=== PATIENT | male | born 1940 | race Caucasian/White ===

== ENCOUNTER 2019-03-12 12:03 | Day surgery (SDC) | payer OTHER, MEDICARE ==
[2019-03-05 17:33] LABS: ALBUMIN 3.8 G/DL (3.4-5.0); ANION GAP 9 (8-16); BLOOD UREA NITROGEN 24 MG/DL (7-18); BUN/CREATININE RATIO 22.6 (5.4-32.0); CALCIUM 8.4 MG/DL (8.5-10.1); CHLORIDE 109 MMOL/L (99-107); CREATININE 1.06 MG/DL (0.60-1.10); GLUCOSE 97 MG/DL (70-104); POTASSIUM 3.5 MMOL/L (3.5-5.1); SODIUM 144 MMOL/L (135-145); TOTAL CARBON DIOXIDE 26.3 MMOL/L (24-32); eGFR 68 ML/MIN
[2019-03-05 17:36] LABS: INR 1.1 INR; PARTIAL THROMBOPLASTIN TIME 31 SECONDS (22-32)
[2019-03-05 17:39] LABS: CLARITY,URINE CLEAR (Clear); COLOR,URINE YELLOW (Yellow); GLUCOSE, URINE NEGATIVE (Neg); KETONES,URINE NEGATIVE (Neg); LEUKOCYTE ESTERASE ,URINE NEGATIVE (Neg); NITRITES, URINE NEGATIVE (Neg); OCCULT BLOOD,URINE NEGATIVE (Neg); PROTEIN,URINE NEGATIVE (Neg); UROBILINOGEN,URINE 0.2 E.U/dL (0.2-1.0)
[2019-03-05 17:53] LABS: UA COLLECTION TYPE NON-SPECIFIED
[2019-03-05 18:07] LABS: BASOPHILS % (AUTO) 0.5 % (0-1); EOSINOPHILS # (AUTO) 0.1 X10'3 (0-0.9); EOSINOPHILS % (AUTO) 2.4 % (0-6); HEMATOCRIT 40.3 % (42.0-52.0); HEMOGLOBIN 14.2 g/dl (14.0-17.9); LYMPHOCYTES % (AUTO) 18.9 % (21-51); MEAN CORPUSCULAR HEMOGLOBIN 33.8 PG (27.0-31.0); MEAN CORPUSCULAR HGB CONC 35.2 g/dL (33.0-36.5); MEAN PLATELET VOLUME 6.3 FL (7.4-10.4); MONOCYTES # (AUTO) 0.5 X10'3 (0-0.9); MONOCYTES % (AUTO) 10.3 % (2-12); NEUTROPHILS # (AUTO) 3.4 X10'3 (1.8-7.7); NEUTROPHILS % (AUTO) 67.9 % (42-75); PLATELET COUNT 224 X10'3 (140-440); RED CELL DISTRIBUTION WIDTH 12.9 % (11.5-14.5); WHITE BLOOD COUNT 5.1 X10'3 (4.5-11.0)
[2019-03-12] VITALS (9 sets, daily range): BP systolic 110–142; BP diastolic 67–83
[~2019-03-12] VITALS: Ht 177.8 cm; Wt 97.3 kg
[~2019-03-12 12:03] MED LIST: clindamycin-Cleocin 900mg/D5W 50 ML IV SCH
[2019-03-12] MEDS ORDERED: normal saline 1000ml 1,000 ML IV SCH (12:25)
[2019-03-12] MEDS ORDERED: ASPI-1265 PO (13:05)
[2019-03-12] MEDS ORDERED: MULT-955 PO (13:05)
[2019-03-12] MEDS ORDERED: DONE10TA7 PO (13:05)
[2019-03-12] MEDS ORDERED: AMLO5TAB PO (13:05)
[2019-03-12] MEDS ORDERED: CLINDAmcin 900mg/NS 50ml IVPB 50 ML IV ONE (13:10)
[2019-03-12] MEDS ORDERED: lidocaine 1%/epinephrine 1:100,000 injection 50ml vial ONE (13:55)
[2019-03-12] MEDS ORDERED: clindamycin phosphate 150mg/ml inj. ONE ×2 (14:42)
[2019-03-12] MEDS ORDERED: clindamycin 600mg/D5W 50ml 50 ML IV ONE (14:42)
[2019-03-12] MEDS ORDERED: proCHLORperazine 10 MG/2 ml inj ONE (14:47)
[2019-03-12] MEDS ORDERED: midazolam 2 mg/2 ml injection ONE (14:48)
[2019-03-12] MEDS ORDERED: fentaNYL/PF 50MCG/1 ML 2ML syringe ONE (14:48)
[2019-03-12] MEDS ORDERED: HYDROcodone/acetaminophen 5mg/325mg tablet PO PRN (16:00)
[2019-03-12] MEDS ORDERED: HYDROcodone/acetaminophen 10/325mg tab PO PRN (16:00)
== END 2019-03-12 18:55 | disposition home or self-care (01) ==
LOC: SSTAY O 12:03
PROVIDERS: ATTEND Internal Medicine Interventional Cardiology
DX: I45.19 Other right bundle-branch block (principal); Z79.82 Long term (current) use of aspirin; Z79.899 Other long term (current) drug therapy
CPT/HCPCS: 33208; 36415; 80048; 81003; 85025; 85610; 85730; 93005; 99152; 99153; C1785; C1898; J0780; J2250; J3010; J3490; A4565; A4620